=== PATIENT | female | born 1975 | race African-American/Black ===

== ENCOUNTER → 2017-03-02 | Outpatient (CLI) | payer MEDICAID, OTHER ==
--- NOTE | 2017-03-02 20:07 | RADIOLOGY REPORT (SQ) ---
EXAM DESCRIPTION: CT ABD/PELVIS WITH IV ORAL COMPLETED DATE/TIME: 03/02/2017 6:56 pm REASON FOR STUDY: INTRA ABDOMINAL AND PELVIC SWELLING, MASS OR LUMP R19.00 INTRA-ABD AND PELVIC SWE LLING, MASS AND LUMP, UNSP SI D50.9 IRON DEFICIENCY ANEMIA, UNSPECIFIED K59.01 SLOW TRANSIT CONSTIP ATION COMPARISON: April 2016 TECHNIQUE: CT scan of the abdomen and pelvis performed with intravenous and oral contrast using grover lacy scanning technique with dynamic intravenous contrast injection. Images reviewed with lung, soft t issue, and bone windows. Reconstructed coronal and sagittal MPR images reviewed. Delayed images for e valuation of the urinary system also acquired. All images stored on PACS. All CT scanners at this facility use dose modulation, iterative reconstruction, and/or weight based d osing when appropriate to reduce radiation dose to as low as reasonably achievable (ALARA). [facility]: Dose Right [facility]: CareDose [facility]: Dose Right [facility]: Teradose 4D [facility]: [employer] CONTRAST TYPE AND DOSE: contrast/concentration: Isovue 370.00 mg/ml; Total Contrast Delivered: 69.0 ml; Total Saline Delivered: 50.0 ml RENAL FUNCTION: Creatinine 0.3 RADIATION DOSE: Up-to-date CT equipment and radiation dose reduction techniques were employed. CTDIv ol: 6.4 - 8.7 mGy. DLP: 784 mGy-cm. . LIMITATIONS: None. FINDINGS: LOWER CHEST: No significant findings. No nodules or infiltrates. LIVER: Normal size. No masses. No dilated ducts. SPLEEN: Normal size. No focal lesions. PANCREAS: No masses. No significant calcifications. No adjacent inflammation or peripancreatic fluid collections. Pancreatic duct not dilated. GALLBLADDER: No identified stones by CT criteria. No inflammatory changes to suggest cholecystitis. ADRENAL GLANDS: No significant masses or asymmetry. RIGHT KIDNEY AND URETER: No solid masses. No significant calcifications. There is some mild fulln ess of the renal pelvis and ureter presumably related to extrinsic compression of the distal ureter b y the enlarged uterus. LEFT KIDNEY AND URETER: No solid masses. No significant calcifications. There is some mild fullne ss of the renal pelvis and ureter presumably related to extrinsic compression of the distal ureter by the enlarged uterus. AORTA AND VESSELS: No aneurysm. No dissection. Renal arteries, SMA, celiac without stenosis. RETROPERITONEUM: No retroperitoneal adenopathy, hemorrhage or masses. BOWEL AND PERITONEAL CAVITY: No obstruction. No visualized masses. No free fluid. No inflammatory ch anges or thickening of bowel wall. APPENDIX: Not identified PELVIS: Again there is diffuse enlargement of the uterus with a lobulated contour and multiple rounde d densities being identified consistent with an enlarged fibroid uterus. There is compression and di splacement of the bladder. ABDOMINAL WALL: No masses. No hernias. BONES: No significant or acute findings. OTHER: No other significant finding. IMPRESSION: The previously described diffuse enlargement of the uterus is again identified consisten t with an enlarged fibroid uterus. There is compression and displacement of the bladder. Other find ings as noted above TECHNICAL DOCUMENTATION: JOB ID: [id number] Quality ID # [id number]: Final reports with documentation of one or more dose reduction techniques (e.g., Au tomated exposure control, adjustment of the mA and/or kV according to patient size, use of iterative reconstruction technique) 2010 [email or web address]- All Rights Reserved
== END ==
LOC: RAD 15:52
PROVIDERS: ATTEND Internal Medicine Gastroenterology
DX: R19.00 Intra-abdominal and pelvic swelling, mass and lump, unspecified site (principal); D50.9 Iron deficiency anemia, unspecified; K59.01 Slow transit constipation
CPT/HCPCS: 74177; 82565

== ENCOUNTER 2017-11-27 13:37 | Emergency (ER) | payer OTHER ==
[2017-11-27] MEDS ORDERED: ONDANSETRON 4 MG TAB.RAPDIS PO ONE (14:15)
[2017-11-27] MEDS ORDERED: FENTANYL CITRATE INJ/PF 100 MCG/2 ML AMPUL IV ONE (14:16)
[2017-11-27] MEDS ORDERED: NORMAL SALINE 1000 ML 1,000 ML IV ONE (14:17)
--- NOTE | 2017-11-27 14:17 | ER Document Report ---
ED Medical Screen (RME) - General Chief Complaint: Abdominal Pain Stated Complaint: ABDOMINAL PAIN Time Seen by Provider: 11/27/17 14:12 Notes: RAPID MEDICAL EVALUATION DISCLOSURE I have seen this patient as part of a Rapid Medical Evaluation and, if applicable, placed any initially appropriate orders. The patient will be seen and fully evaluated, including a full history and physical exam, by a provider ( in Main ED or Fast Track) when a room becomes available. 42-year-old female here with complaints of left lower quadrant abdominal pain hematuria nausea vomiting ongoing for the past few days. She does not know of anything in particular makes the pain worse. She has tried ibuprofen which has helped some. She denies vaginal bleeding discharge fevers chills. Denies any prior history of kidney stones diverticulitis colitis. EXAM Exquisite tenderness to palpation of left lower greater than upper quadrant No peritoneal signs Tachycardic TRAVEL OUTSIDE OF THE [place] IN LAST 30 DAYS: No - Related Data Allergies/Adverse Reactions: acetaminophen [From Percocet] Allergy (Verified 11/27/17 13:49) oxycodone [From OxyContin] Allergy (Verified 11/27/17 13:49) Past Medical History - Social History Family history: Reviewed & Not Pertinent Endocrine Medical History: Reports: Hx Diabetes Mellitus Type 1, Hx Diabetes Mellitus Type 2 - DX [place] 2003 Psychiatric Medical History: Reports: Hx Anxiety Past Surgical History: Reports: Hx Abdominal Surgery - , Hx Section. Denies: Hx Adenoidectomy - Immunizations Hx Diphtheria, Pertussis, Tetanus Vaccination: Yes Physical Exam - Vital signs Vitals: Temp Pulse Resp BP Pulse Ox 98.7 F 124 H 20 130/83 H 97 11/27/17 13:54 11/27/17 13:54 11/27/17 13:54 11/27/17 13:54 11/27/17 13:54 Course - Vital Signs Vital signs: Temp Pulse Resp BP Pulse Ox 98.7 F 124 H 20 130/83 H 97 11/27/17 13:54 11/27/17 13:54 11/27/17 13:54 11/27/17 13:54 11/27/17 13:54 Doctor's Discharge - Discharge Referrals: ROSEMARIE DOUGLAS MD [Primary Care Provider] - Follow up as needed
[2017-11-27 15:51] LABS: ABSOLUTE BASOPHILS # (AUTO) 0.1 10^3/uL (0.0-0.2); ABSOLUTE EOSINOPHILS # (AUTO) 0.1 10^3/uL (0.0-0.6); ABSOLUTE LYMPHOCYTES (AUTO) 2.7 10^3/uL (0.5-4.7); ABSOLUTE MONOCYTES (AUTO) 0.6 10^3/uL (0.1-1.4); BASOPHILS % (AUTO) 0.7 % (0-2); EOSINOPHILS % (AUTO) 0.6 % (0-6); HEMATOCRIT 43.2 % (36.0-47.0); HEMOGLOBIN 14.3 g/dL (12.0-15.5); LYMPHOCYTES % (AUTO) 17.7 % (13-45); MEAN CORPUSCULAR HEMOGLOBIN 29.6 pg (27.0-33.4); MEAN CORPUSCULAR VOLUME 90 fl (80-97); MONOCYTES % (AUTO) 3.8 % (3-13); PLATELET COUNT 300 10^3/uL (150-450); RED BLOOD COUNT 4.81 10^6/uL (3.72-5.28); RED CELL DISTRIBUTION WIDTH 14.4 % (11.5-14.0); SEGMENTED NEUTROPHILS % (AUTO) 77.2 % (42-78); TOTAL CELLS COUNTED % (AUTO) 100 %; WHITE BLOOD COUNT 15.5 10^3/uL (4.0-10.5)
[2017-11-27 16:14] LABS: ALANINE AMINOTRANSFERASE 13 U/L (9-52); ALBUMIN 4.3 g/dL (3.5-5.0); ALKALINE PHOSPHATASE 83 U/L (38-126); ANION GAP 15 (5-19); ASPARTATE AMINO TRANSFERASE 13 U/L (14-36); BILIRUBIN,DIRECT 0.4 mg/dL (0.0-0.4); BILIRUBIN,TOTAL 0.4 mg/dL (0.2-1.3); BLOOD UREA NITROGEN 14 mg/dL (7-20); CALCIUM 9.9 mg/dL (8.4-10.2); CARBON DIOXIDE 24 mmol/L (22-30); CHLORIDE 99 mmol/L (98-107); GLUCOSE 379 mg/dL (75-110); LIPASE 110.6 U/L (23-300); POTASSIUM 4.5 mmol/L (3.6-5.0); SODIUM 137.7 mmol/L (137-145); TOTAL PROTEIN 7.4 g/dL (6.3-8.2)
[2017-11-27 16:47] LABS: APPEARANCE,URINE SLIGHTLY-CLOUDY; BILIRUBIN,URINE NEGATIVE (NEGATIVE); COLOR,URINE YELLOW; GLUCOSE, URINE >=500 mg/dL (NEGATIVE); KETONES,URINE TRACE mg/dL (NEGATIVE); LEUKOCYTE ESTERASE,URINE NEGATIVE (NEGATIVE); NITRITE,URINE NEGATIVE (NEGATIVE); PROTEIN,URINE 30 mg/dL (NEGATIVE); URINE SPECIFIC GRAVITY 1.033; UROBILINOGEN,URINE NEGATIVE mg/dL (<2.0)
--- NOTE | 2017-11-27 17:20 | ER Document Report ---
ED General - General Chief Complaint: Abdominal Pain Stated Complaint: ABDOMINAL PAIN Time Seen by Provider: 11/27/17 14:12 Mode of Arrival: Ambulatory Information source: Patient Notes: 42-year-old female presents emergency department with complaints of left lower quadrant abdominal pain that has been present for the last few days. She has had associated nausea, vomiting, hematuria. She describes the pain as a dull aching sensation in the left lower quadrant. No radiation of the pain. No exacerbating factors. Pain relieved with ibuprofen. Patient denies vaginal bleeding, vaginal discharge. Patient does have a history of uterine fibroids. Patient is unsure if the pain is a result of the fibroids or something else. TRAVEL OUTSIDE OF THE [place] IN LAST 30 DAYS: No - HPI Onset: Last week Onset/Duration: Gradual Quality of pain: Achy, Fullness Severity: Moderate Associated symptoms: None Exacerbated by: Denies Relieved by: Other - motrin Similar symptoms previously: Yes Recently seen / treated by doctor: No - Related Data Allergies/Adverse Reactions: acetaminophen [From Percocet] Allergy (Verified 11/27/17 13:49) oxycodone [From OxyContin] Allergy (Verified 11/27/17 13:49) Past Medical History - Social History Smoking Status: Former Smoker Frequency of alcohol use: None Drug Abuse: None Family History: DM, Malignancy Patient has suicidal ideation: No Patient has homicidal ideation: No Endocrine Medical History: Reports: Hx Diabetes Mellitus Type 1, Hx Diabetes Mellitus Type 2 - DX [place] 2003 Renal/ Medical History: Denies: Hx Peritoneal Dialysis Psychiatric Medical History: Reports: Hx Anxiety Past Surgical History: Reports: Hx Abdominal Surgery - , Hx Section. Denies: Hx Adenoidectomy - Immunizations Hx Diphtheria, Pertussis, Tetanus Vaccination: Yes Review of Systems - Review of Systems Constitutional: No symptoms reported EENT: No symptoms reported Cardiovascular: No symptoms reported Respiratory: No symptoms reported Gastrointestinal: Nausea, Vomiting Genitourinary: Hematuria Female Genitourinary: No symptoms reported Musculoskeletal: No symptoms reported Skin: No symptoms reported Neurological/Psychological: No symptoms reported -: Yes All other systems reviewed and negative Physical Exam - Vital signs Vitals: Temp Pulse Resp BP Pulse Ox 98.7 F 124 H 20 130/83 H 97 11/27/17 13:54 11/27/17 13:54 11/27/17 13:54 11/27/17 13:54 11/27/17 13:54 Interpretation: Normal, Tachycardic - Notes Notes: PHYSICAL EXAMINATION: GENERAL: Well-appearing, well-nourished and in no acute distress. HEAD: Atraumatic, normocephalic. EYES: Pupils equal round and reactive to light, extraocular movements intact, conjunctiva are normal. ENT: Nares patent, oropharynx clear without exudates. Moist mucous membranes. NECK: Normal range of motion, supple without lymphadenopathy LUNGS: Breath sounds clear to auscultation bilaterally and equal. No wheezes rales or rhonchi. HEART: Regular rate and rhythm without murmurs ABDOMEN: Soft, tenderness to palpation in the LLQ, nondistended abdomen. No guarding, no rebound. No masses appreciated. Female : deferred Musculoskeletal: Normal range of motion, no pitting or edema. No cyanosis. NEUROLOGICAL: Cranial nerves grossly intact. Normal speech, normal gait. Normal sensory, motor exams PSYCH: Normal mood, normal affect. SKIN: Warm, Dry, normal turgor, no rashes or lesions noted. Course - Re-evaluation Re-evalutation: 11/27/17 18:51 Labs and imaging obtained. Patient has an elevated white blood cell count of 15.5. Patient CT of the abdomen and pelvis was done and shows uterine fibroids with a mild hydroureter. Patient's creatinine is normal. I discussed the results with the patient. Patient does have an DISABILITY INSURANCE HEARING OFFICER that she follows up with. I instructed the patient that she will need to follow-up with her DISABILITY INSURANCE HEARING OFFICER for further management. Patient instructed to continue taking her medications as directed and to return to the emergency department for any worsening symptoms. Patient is agreeable with the plan of care. - Vital Signs Vital signs: Temp Pulse Resp BP Pulse Ox 98.7 F 124 H 20 130/83 H 97 11/27/17 13:54 11/27/17 13:54 11/27/17 13:54 11/27/17 13:54 11/27/17 13:54 - Laboratory Result Diagrams: 11/27/17 15:36 11/27/17 15:36 Laboratory results interpreted by me: 11/27/17 11/27/17 11/27/17 15:36 15:36 16:13 WBC 15.5 H RDW 14.4 H Absolute Neutrophils 12.0 H Glucose 379 H AST 13 L Urine Protein 30 H Urine Glucose (UA) >=500 H Urine Ketones TRACE H Urine Blood SMALL H Urine Ascorbic Acid 40 H Discharge - Discharge Clinical Impression: Fibroid Qualifiers: Uterine leiomyoma location: unspecified location Qualified Code(s): D25.9 - Leiomyoma of uterus, unspecified Condition: Good Disposition: HOME, SELF-CARE Instructions: Abdominal Pain ([facility]) Referrals: ROSEMARIE DOUGLAS MD [EMERITUS] - Follow up as needed
--- NOTE | 2017-11-27 17:27 | RADIOLOGY REPORT (SQ) ---
EXAM DESCRIPTION: CT ABD/PELVIS WITH IV ONLY COMPLETED DATE/TIME: 11/27/2017 5:12 pm REASON FOR STUDY: LLQ>LUQ TTP, hematuria; eval stone vs diverticulitis COMPARISON: None. TECHNIQUE: CT scan of the abdomen and pelvis performed using helical scanning technique with dynamic intravenous contrast injection. No oral contrast. Images reviewed with lung, soft tissue, and bone windows. Reconstructed coronal and sagittal MPR images reviewed. Delayed images for evaluation of the urinary system also acquired. All images stored on PACS. All CT scanners at this facility use dose modulation, iterative reconstruction, and/or weight based d osing when appropriate to reduce radiation dose to as low as reasonably achievable (ALARA). [facility]: Dose Right [facility]: CareDose [facility]: Dose Right [facility]: Teradose 4D [facility]: [employer] CONTRAST TYPE AND DOSE: contrast/concentration: Isovue 370.00 mg/ml; Total Contrast Delivered: 72.0 ml; Total Saline Delivered: 39.0 ml RENAL FUNCTION: BUN 14 creatinine 0.61 RADIATION DOSE: CT Rad equipment meets quality standard of care and radiation dose reduction techniq ues were employed. CTDIvol: NaN - NaN mGy. DLP: 0 mGy-cm.. LIMITATIONS: None. FINDINGS: LOWER CHEST: No significant findings. No nodules or infiltrates. LIVER: Normal size. No masses. No dilated ducts. SPLEEN: Normal size. No focal lesions. PANCREAS: No masses. No significant calcifications. No adjacent inflammation or peripancreatic fluid collections. Pancreatic duct not dilated. GALLBLADDER: No identified stones by CT criteria. No inflammatory changes to suggest cholecystitis. ADRENAL GLANDS: No significant masses or asymmetry. RIGHT KIDNEY AND URETER: No solid masses. No significant calcifications. Minimal hydronephrosis/h ydroureter. LEFT KIDNEY AND URETER: No solid masses. No significant calcifications. Minimal hydronephrosis/hy droureter. AORTA AND VESSELS: No aneurysm. No dissection. Renal arteries, SMA, celiac without stenosis. RETROPERITONEUM: No retroperitoneal adenopathy, hemorrhage or masses. BOWEL AND PERITONEAL CAVITY: No masses or inflammatory changes. No free fluid or peritoneal masses. APPENDIX: Not identified. PELVIS: Markedly enlarged uterus with multiple large heterogeneous masses. The uterus measures 16.7 by 11.8 by 15 cm. ABDOMINAL WALL: No masses. No hernias. BONES: No significant or acute findings. OTHER: No other significant finding. IMPRESSION: Markedly enlarged uterus with multiple large fibroids. This results in mild bilateral h ydronephrosis/hydroureter TECHNICAL DOCUMENTATION: JOB ID: [id number] Quality ID # [id number]: Final reports with documentation of one or more dose reduction techniques (e.g., Au tomated exposure control, adjustment of the mA and/or kV according to patient size, use of iterative reconstruction technique) 2010 [employer]- All Rights Reserved Reading location - IP/workstation name: [email or web address]
[2017-11-27 19:15] VITALS: BP 121/78
== END 2017-11-27 19:10 | disposition home or self-care (01) ==
LOC: ER 13:37
DX: D25.9 Leiomyoma of uterus, unspecified (principal); R10.32 Left lower quadrant pain; R11.2 Nausea with vomiting, unspecified; R31.9 Hematuria, unspecified; E11.9 Type 2 diabetes mellitus without complications; Z88.6 Allergy status to analgesic agent; Z87.891 Personal history of nicotine dependence
CPT/HCPCS: 99284; 96360; 36415; 83690; 85025; 81025; 80053; 81001; 74177; S0119; J7030

== ENCOUNTER 2018-04-09 12:12 | Day surgery (SDC) | payer OTHER ==
--- NOTE | 2018-04-07 11:10 | RADIOLOGY REPORT (SQ) ---
EXAM DESCRIPTION: CHEST PA/LATERAL COMPLETED DATE/TIME: 04/07/2018 10:54 am REASON FOR STUDY: PRE-OP COMPARISON: 04/18/2013 EXAM PARAMETERS: NUMBER OF VIEWS: two views TECHNIQUE: Digital Frontal and Lateral radiographic views of the chest acquired. RADIATION DOSE: NA LIMITATIONS: none FINDINGS: LUNGS AND PLEURA: No opacities, masses or pneumothorax. No pleural effusion. MEDIASTINUM AND HILAR STRUCTURES: No masses or contour abnormalities. HEART AND VASCULAR STRUCTURES: Heart normal size. No evidence for failure. BONES: No acute findings. HARDWARE: None in the chest. OTHER: No other significant finding. IMPRESSION: NO SIGNIFICANT RADIOGRAPHIC FINDING IN THE CHEST. TECHNICAL DOCUMENTATION: JOB ID: [id number] [employer]- All Rights Reserved Reading location - IP/workstation name: [email or web address]
[2018-04-07 11:19] LABS: HEMOGLOBIN 10.5 g/dL (12.0-15.5); MEAN CORPUSCULAR HEMOGLOBIN 26.6 pg (27.0-33.4); MEAN CORPUSCULAR HGB CONC 32.7 g/dL (32.0-36.0); MEAN CORPUSCULAR VOLUME 81 fl (80-97); PLATELET COUNT 372 10^3/uL (150-450); RED BLOOD COUNT 3.94 10^6/uL (3.72-5.28); RED CELL DISTRIBUTION WIDTH 17.3 % (11.5-14.0); WHITE BLOOD COUNT 12.7 10^3/uL (4.0-10.5)
[2018-04-07 11:44] LABS: ANION GAP 13 (5-19); BLOOD UREA NITROGEN 8 mg/dL (7-20); CARBON DIOXIDE 24 mmol/L (22-30); CHLORIDE 100 mmol/L (98-107); GLUCOSE 391 mg/dL (75-110); SODIUM 137.2 mmol/L (137-145)
[2018-04-07 11:46] LABS: POTASSIUM 4.4 mmol/L (3.6-5.0)
[~2018-04-09 12:12] MED LIST: ACETAMINOPHEN 1,000 MG/100 ML RTUPB IV ONE; CEFAZOLIN 2 GM/D5W RTU 2 GM/50 ML RTUPB IV PRN; DEXAMETHASONE SOD PHOSPHATE INJ 4 MG/1 ML VIAL ONE; LIDOCAINE 2% INJ-PF (20 MG/ML) 10 ML AMPUL ONE; MIDAZOLAM 2 MG/2 ML INJ ONE; ONDANSETRON HCL INJ/PF 4 MG/2 ML SDV ONE; PROPOFOL INJ 200 MG/20 ML VIAL IV ONE
[2018-04-09] MEDS ORDERED: CEFAZOLIN 2 GM/D5W RTU 2 GM/50 ML RTUPB IV ONE (12:17)
[2018-04-09] MEDS ORDERED: BUPIVACAINE HCL 0.5 % INJ/PF 30 ML SDV ONE (12:17)
[2018-04-09] MEDS ORDERED: LIDOCAINE 1% INJ-PF (10 MG/ML) 30 ML SDV ONE (12:17)
[2018-04-09] MEDS ORDERED: ALBUTEROL SULFATE 0.083% NEB 2.5 MG/3 ML AMPUL NEB ONE (12:29)
[2018-04-09] MEDS ORDERED: FAMOTIDINE INJ/PF 20 MG/2 ML SDV IV ONE (12:44)
[2018-04-09] MEDS ORDERED: METOCLOPRAMIDE HCL INJ/PF 10 MG/2 ML SDV ONE (12:45)
[2018-04-09] MEDS ORDERED: PROMETHAZINE HCL INJ 25 MG/1 ML VIAL IV PRN ×2 (12:51)
[2018-04-09] MEDS ORDERED: MORPHINE SULFATE 10 MG/ML INJ IV PRN (12:51)
[2018-04-09] MEDS ORDERED: MEPERIDINE HCL/PF INJ 25 MG/1 ML DISP.SYRIN IV PRN (12:51)
[2018-04-09] MEDS ORDERED: FENTANYL CITRATE INJ/PF 100 MCG/2 ML AMPUL IV PRN ×3 (12:51)
[2018-04-09] MEDS ORDERED: DIPHENHYDRAMINE HCL 50 MG/ML VIAL IV PRN (12:51)
[2018-04-09] MEDS ORDERED: ONDANSETRON HCL INJ/PF 4 MG/2 ML SDV IV PRN (12:51)
[2018-04-09] MEDS: FENTANYL CITRATE INJ/PF 100 MCG/2 ML AMPUL ONE ×2 (14:40→14:45)
[2018-04-09] MEDS ORDERED: FENTANYL CITRATE INJ/PF 100 MCG/2 ML AMPUL ONE (14:45)
[2018-04-09] MEDS ORDERED: HYDROCODONE/ACETAMINOPHEN 5-325 MG TABLET ONE (15:15)
[2018-04-09 16:23] VITALS: BP 156/80
--- NOTE | 2018-04-12 09:07 | Discharge Summary ---
Discharge Summary (SDC) - Discharge Final Diagnosis: Scalp cyst Condition: Good Forms: ASU Anesthesia D/C Instruction, Discharge POC-Surgical Service Referrals: SHWETA DAWKINS MD [ACTIVE STAFF] - 04/20/18 9:30 am Respiratory Treatments at Home: Deep Breathing/Coughing, Incentive Spirometer Discharge Activity: Balance Activity w/Rest Home Care Assistance: None Needed Report the Following to Your Physician Immediately: Nausea, Vomiting, Increase in Pain, Fever over 101 Degrees, Unusual Bleeding, Redness, Swelling, Warmth, Drainage-Yellow, Drainage-Foul Smelling
--- NOTE | 2018-04-12 14:51 | Operative Report ---
Nonrecallable Operative Report DATE OF SURGERY: 04/09/18 PREOPERATIVE DIAGNOSIS: Scalp cyst POSTOPERATIVE DIAGNOSIS: Same as above OPERATION: Excision of 4 cm scalp cyst. SURGEON: SHWETA DAWKINS ANESTHESIA: LMAC TISSUE REMOVED OR ALTERED: 4 cm scalp cyst COMPLICATIONS: None apparent ESTIMATED BLOOD LOSS: Minimal PROCEDURE: Drains/implants: None. Procedure in detail: After informed consent was obtained, the patient was brought into the operating room and laid in the left lateral decubitus position. The scalp was prepped and draped in a normal sterile fashion. The 4 cm scalp cyst was easily identified. An elliptical incision was created over the cyst. A large amount of sebaceous material was removed from the cyst. The cyst wall was excised sharply. The cyst extended all the way down to the calvarium. Hemostasis was achieved using Bovie electrocautery and suture ligation. The overlying skin was then closed using 3-0 Prolene suture in vertical mattress fashion. A dressing was fashioned and the procedure was concluded. All sponge, instrument, and needle counts were correct x2. Condition: Stable.
== END 2018-04-09 16:10 | disposition home or self-care (01) ==
LOC: OROUT 12:12
PROVIDERS: ATTEND Surgery
DX: L72.11 Pilar cyst (principal); E11.9 Type 2 diabetes mellitus without complications; D64.9 Anemia, unspecified; F17.210 Nicotine dependence, cigarettes, uncomplicated; Z88.5 Allergy status to narcotic agent; Z87.09 Personal history of other diseases of the respiratory system; Z79.84 Long term (current) use of oral hypoglycemic drugs; Z79.4 Long term (current) use of insulin
CPT/HCPCS: 36415; 82962; 85027; 81025; 80048; 71046; 21014; J2250; J3490 ×3; J1100; J3010; J2765; J2405; J2704; S0028; J0690; J0131; 300

== ENCOUNTER → 2019-01-10 | Outpatient (CLI) | payer BC ==
--- NOTE | 2019-01-10 16:49 | RADIOLOGY REPORT (SQ) ---
EXAM DESCRIPTION: U/S THYROID/SFT TISS HD NECK COMPLETED DATE/TIME: 01/10/2019 4:39 pm REASON FOR STUDY: R59.0 LOCALIZED ENLARGED LYMPH NODES R59.0 LOCALIZED ENLARGED LYMPH NODES COMPARISON: None. TECHNIQUE: Dynamic and static zepeda-scale images acquired of the thyroid gland. Selected additional c olor/power Doppler images recorded. All images stored to PACS. LIMITATIONS: None. FINDINGS: RIGHT LOBE: 2.2 x 5.7 cm. Slightly heterogenous echotexture. No cystic or solid masses. LEFT LOBE: 2.1 x 5.4 cm. Slightly heterogenous echotexture. 5 mm hypoechoic nodule. ISTHMUS: Normal size. Slightly heterogenous echotexture. 7 mm hypoechoic nodule. OTHER: No other significant finding. IMPRESSION: MILD THYROMEGALY WITH SLIGHTLY HETEROGENOUS ECHOTEXTURE. SMALL SUBCENTIMETER NODULES. NO ADENOPATHY VISUALIZED. TECHNICAL DOCUMENTATION: JOB ID: [id number] [employer]- All Rights Reserved Reading location - IP/workstation name: [email or web address]
== END ==
LOC: RAD 15:51
PROVIDERS: ATTEND Internal Medicine Geriatric Medicine
DX: E04.1 Nontoxic single thyroid nodule (principal); R59.0 Localized enlarged lymph nodes
CPT/HCPCS: 76536

== ENCOUNTER → 2019-02-07 | Outpatient (CLI) | payer BC ==
--- NOTE | 2019-02-07 14:28 | RADIOLOGY REPORT (SQ) ---
EXAM DESCRIPTION: NM GASTRIC EMPTYING STUDY COMPLETED DATE/TIME: 02/07/2019 1:51 pm REASON FOR STUDY: GASTROPARESIS (K31.84) K31.84 GASTROPARESIS COMPARISON: None. RADIONUCLIDE AND DOSE: 2 millicuries Tc-99m Sulfur Colloid. A wide variety of solid foods have been used. The route of agent administration: Oral. TECHNIQUE: 1 minute serial static imaging performed at time of meal, 1 hour, 2 hours, 3 hours, and 4 hours as needed. Once stomach reaches 90% emptying, the test is complete. Image intensity values pl otted with respect to time with linear regression algorithm. LIMITATIONS: None. FINDINGS: Patient was observed for 4 hours. Immediate post meal serves as baseline. Gastric emptying at 30 minutes was 47.5%. Gastric emptying at 60 minutes was 54.5% Gastric emptying at 90 minutes was 58.8%. Gastric emptying at 120 minutes was 61.9%. Gastric emptying at 240 minutes was 69.2% IMPRESSION: Delayed gastric emptying TECHNICAL DOCUMENTATION: JOB ID: [id number] [employer]- All Rights Reserved Reading location - IP/workstation name: [email or web address]
== END ==
LOC: RAD 07:35
PROVIDERS: ATTEND Internal Medicine Geriatric Medicine
DX: E11.43 Type 2 diabetes mellitus with diabetic autonomic (poly)neuropathy (principal); K31.84 Gastroparesis
CPT/HCPCS: 78264; A9541

== ENCOUNTER 2019-07-10 02:45 | Emergency (ER) | payer BC ==
[2019-07-10] MEDS ORDERED: METOCLOPRAMIDE HCL INJ/PF 10 MG/2 ML SDV IV ONE (04:06)
--- NOTE | 2019-07-10 04:08 | ER Document Report ---
ED General - General Chief Complaint: Chest Pain Stated Complaint: NAUSEA,VOMITING Time Seen by Provider: 07/10/19 04:00 Primary Care Provider: [facility] [Provider Group] - Follow up in 3-5 days AMANDA FITZGERALD MD [Primary Care Provider] - 07/11/19 TRAVEL OUTSIDE OF THE [place] IN LAST 30 DAYS: No - HPI Notes: Patient is a 44-year-old female with a history of diabetes and gastroparesis who presents complaining of generalized abdominal pain, nausea/vomiting, loose stool over the past week and a half. Patient states that she does feel a burning to her epigastrium/lower chest area. Patient states that she has had a dry cough recently as well. Patient has had decreased p.o. intake. She is otherwise urinating normally. No other concerns or complaints. Surgical history to her abdomen is positive for a . Denies any headache, fever, neck pain, UR I, sore throat, palpitations, syncope, shortness of breath, wheeze, dyspnea, urinary retention, dysuria, hematuria, back pain, or rash. - Related Data Allergies/Adverse Reactions: oxycodone Allergy (Severe, Verified 04/09/18 13:16) Anaphylaxis Past Medical History - Social History Smoking Status: Never Smoker Chew tobacco use (# tins/day): No Frequency of alcohol use: None Drug Abuse: None Family History: DM, Malignancy Patient has suicidal ideation: No Patient has homicidal ideation: No - Past Medical History Cardiac Medical History: Denies: Hx Coronary Artery Disease, Hx Heart Attack, Hx Hypertension Pulmonary Medical History: Denies: Hx Asthma, Hx Bronchitis, Hx COPD, Hx Pneumonia Neurological Medical History: Denies: Hx Cerebrovascular Accident, Hx Seizures Endocrine Medical History: Reports: Hx Diabetes Mellitus Type 1, Hx Diabetes Mellitus Type 2 - DX [place] 2003 Renal/ Medical History: Denies: Hx Peritoneal Dialysis Musculoskeletal Medical History: Denies Hx Arthritis Psychiatric Medical History: Reports: Hx Anxiety Past Surgical History: Reports: Hx Abdominal Surgery - , Hx Section. Denies: Hx Adenoidectomy - Immunizations Hx Diphtheria, Pertussis, Tetanus Vaccination: Yes Review of Systems - Review of Systems -: Yes All other systems reviewed and negative Physical Exam - Vital signs Vitals: Temp Pulse Resp BP Pulse Ox 97.9 F 115 H 24 H 139/78 H 99 07/10/19 03:07 07/10/19 03:07 07/10/19 03:07 07/10/19 03:07 07/10/19 03:07 - Notes Notes: PHYSICAL EXAMINATION: GENERAL: Well-appearing, well-nourished and in no acute distress. HEAD: Atraumatic, normocephalic. EYES: Pupils equal round and reactive to light, extraocular movements intact, sclera anicteric, conjunctiva are normal. ENT: Nares patent and without discharge. oropharynx clear without exudates. No tonsilar hypertrophy or erythema. Moist mucous membranes. NECK: Normal range of motion, supple without lymphadenopathy LUNGS: Breath sounds clear to auscultation bilaterally and equal. No wheezes rales or rhonchi. HEART: Regular rate and rhythm without murmurs, rubs, gallops. ABDOMEN: Soft, nondistended abdomen. No guarding, no rebound. Normal bowel sounds present. No CVA tenderness bilaterally. + generalized tenderness and tenderness to the epigastrum that reproduces her described pains. + palp mass noted lower abd. Musculoskeletal: FROM to passive/active. Strength 5+/5. Extremities: No cyanosis, clubbing, or edema b/l. Peripheral pulses 2+. Capillary refill less than 3 seconds. NEUROLOGICAL: Cranial nerves grossly intact. Normal speech, normal gait. PSYCH: Normal mood, normal affect. SKIN: Warm, Dry, normal turgor, no rashes or lesions noted. Course - Re-evaluation Re-evalutation: 07/10/19 06:38 I did speak with OBGYN, Dr. Carbone, regarding the CT findings. Pt may f/u in their office. Patient is an afebrile, well-hydrated, 44-year-old female who presents to the ED with generalized abd pain and enlarging uterus suggestive of leiomyomas/fibroids--see imaging, and cough which may be viral. Vitals are acceptable without any significant tachycardia, tachypnea, or hypoxia. PE is otherwise unremarkable. Labs otherwise acceptable. Patient is nontoxic-appear ing is tolerating p.o. without any difficulties. CXR unremarkable. No other labs or imaging warranted at this time based on H&P. Pt does not have any SOB or CP. Her pain is epigastric and generalized abd--reproducible. The GI cocktail finished off any remaining upper GI symptoms. Low suspicion/risk for pneumonia, ACS, PE, Pneumothorax, pericarditis, acute appendicitis, bowel obstruction, acute cholecystitis, acute cholangitis, perforated diverticulitis, incarcerated hernia, pancreatitis, perforated ulcer, peritonitis, sepsis, pelvic inflammatory disease, ectopic , tubo-ovarian abscess, ovarian torsion, or other systemic emergent condition at this time. Patient is aware that her condition can change from initial presentation and she needs to monitor symptoms closely and seek medical attention if any acute changes. I will send her home with prescription for reglan. Conservative measures otherwise for symptoms. Recheck with your PCM/OBGYN in 3-5 days. Return to the ED with any worsening/concerning symptoms otherwise as reviewed in discharge. Patient is in agreement. - Vital Signs Vital signs: Temp Pulse Resp BP Pulse Ox 97.9 F 115 H 19 149/115 H 99 07/10/19 03:07 07/10/19 03:07 07/10/19 04:01 07/10/19 04:01 07/10/19 04:05 - Laboratory Result Diagrams: 07/10/19 04:15 07/10/19 04:15 Laboratory results interpreted by me: 07/10/19 07/10/19 07/10/19 03:36 04:15 04:15 WBC 12.6 H Hgb 10.0 L Hct 31.5 L MCV 78 L MCH 24.9 L MCHC 31.9 L RDW 17.9 H Plt Count 620 H Abs Neuts (Manual) 8.9 H Sodium 130.1 L Glucose 264 H POC Glucose 271 H Albumin 3.3 L Urine Protein Urine Glucose (UA) Urine Ketones 07/10/19 06:00 WBC Hgb Hct MCV MCH MCHC RDW Plt Count Abs Neuts (Manual) Sodium Glucose POC Glucose Albumin Urine Protein >=500 H Urine Glucose (UA) >=500 H Urine Ketones 20 H Discharge - Discharge Clinical Impression: Uterine enlargement, Gastroenteritis, Cough Abdominal pain Qualifiers: Abdominal location: generalized Qualified Code(s): R10.84 - Generalized abdominal pain Condition: Stable Disposition: HOME, SELF-CARE Instructions: Abdominal Pain ([facility]) Additional Instructions: Maintain adequate fluid and food intake [place] diet ([employer] Bananas, rice, apples, toast, etc Zofran as needed tylenol if needed Monitor for any worsening symptoms Make sure you are staying hydrated enough to urinate and have normal BM's Recheck with your PCM in 3-5 days Schedule appoint with [facility] to further evaluate your enlarged uterus and leiomyoma/fibroids Consider consult with gastroenterology Return to the ED with any worsening symptoms and/or development of fever, headache, chest pain, palpitations, syncope, shortness of breath, trouble br eathing, abdominal pain, n/v/d, blood in stool/urine, weakness, or other worsening symptoms that are concerning to you. Prescriptions: Omeprazole 20 mg PO DAILY #30 tablet. Metoclopramide HCl [Reglan] 10 mg PO BID PRN #10 tablet PRN Reason: Forms: Elevated Blood Pressure Referrals: AMANDA FITZGERALD MD [Primary Care Provider] - 07/11/19 [facility] [Provider Group] - Follow up in 3-5 days
[2019-07-10] MEDS: NORMAL SALINE 1000 ML 1,000 ML IV PRN ×2 (04:27→05:45)
[2019-07-10 04:43] LABS: HEMATOCRIT 31.5 % (36.0-47.0); MEAN CORPUSCULAR HEMOGLOBIN 24.9 pg (27.0-33.4); MEAN CORPUSCULAR HGB CONC 31.9 g/dL (32.0-36.0); MEAN CORPUSCULAR VOLUME 78 fl (80-97); PLATELET COUNT 620 10^3/uL (150-450); RED BLOOD COUNT 4.04 10^6/uL (3.72-5.28); RED CELL DISTRIBUTION WIDTH 17.9 % (11.5-14.0); WHITE BLOOD COUNT 12.6 10^3/uL (4.0-10.5)
[2019-07-10 04:58] LABS: ALBUMIN 3.3 g/dL (3.5-5.0); ALKALINE PHOSPHATASE 76 U/L (38-126); ANION GAP 6 (5-19); ASPARTATE AMINO TRANSFERASE 19 U/L (14-36); BILIRUBIN,TOTAL 0.4 mg/dL (0.2-1.3); BLOOD UREA NITROGEN 13 mg/dL (7-20); CARBON DIOXIDE 25 mmol/L (22-30); CHLORIDE 99 mmol/L (98-107); GLUCOSE 264 mg/dL (75-110); POTASSIUM 4.4 mmol/L (3.6-5.0); TOTAL PROTEIN 6.3 g/dL (6.3-8.2)
[2019-07-10 05:01] LABS: ABSOLUTE LYMPHOCYTES# (MANUAL) 3.3 10^3/uL (0.5-4.7); ABSOLUTE MONOCYTES # (MANUAL) 0.4 10^3/uL (0.1-1.4); BASOPHILS % (MANUAL) 0 % (0-2); EOSINOPHILS % (MANUAL) 0 % (0-6); LYMPHOCYTES % (MANUAL) 26 % (13-45); MONOCYTES % (MANUAL) 3 % (3-13); SEGMENTED NEUTROPHILS % (MAN) 71 % (42-78); TOTAL CELLS COUNTED 100
[2019-07-10 05:02] LABS: ANISOCYTOSIS 1+; PLATELET COMMENT INCREASED; SCHISTOCYTES SLIGHT
--- NOTE | 2019-07-10 05:58 | RADIOLOGY REPORT (SQ) ---
CT ABDOMEN AND PELVIS WITH INTRAVENOUS CONTRAST: 07/10/2019 4:51 AM [employer] HISTORY: 44-year old with generalized abdominal pain, nausea, vomiting. COMPARISON: Multiple CTs from 04/02/2016 through 01/10/2019 TECHNIQUE: Axial contiguous images were obtained from the lung bases to the proximal femurs with intravenous intravenous contrast administered. Oral contrast was also given to the patient. Sagittal and coronal reconstructions were also obtained and reviewed. This exam was performed according to our departmental dose-optimization program, which includes automated exposure control, adjustment of the mA and/or KV according to the patient's size and/or use of iterative reconstruction technique. FINDINGS: No focal consolidative airspace opacities are seen. No discrete pleural effusion is seen. The visualized hepatic parenchyma is unremarkable. No focal enhancing lesion is seen. The gallbladder demonstrates no evidence of calcified gallstones The spleen, pancreas, and adrenals are normal in size and contour. There is mild bilateral hydronephrosis. Bladder is minimally distended, but grossly appears unremarkable. The uterus is present enlarged. The uterus measures at least 20.4 x 10.5 cm, previously 15.5 x 8.8 cm. There are multiple masses. This could be due to leiomyomas. The uterus has steadily increased in size since original imaging. Gynecologic referral may be warranted to exclude a other etiologies such as a sarcoma. The stomach is not well distended. The small bowel loops appear unremarkable. No pericolonic inflammatory stranding is seen. The appendix appears unremarkable. There is no evidence of pneumoperitoneum or free fluid. The aorta and IVC appear normal in size. No significantly enlarged lymph nodes are seen in the abdomen or pelvis. Review of the bone show no evidence of any suspicious lytic or blastic lesions. IMPRESSION: There is mild bilateral hydronephrosis which may be secondary to the mass effect from the uterus. The uterus is enlarged with multiple masses which may be secondary to uterine leiomyomas. The uterus is subtly increased in size. Gynecologic referral will likely be warranted to exclude an underlying neoplasm such as a sarcoma. MRI imaging could possibly be of benefit
[2019-07-10 06:23] LABS: APPEARANCE,URINE SLIGHTLY-CLOUDY; BILIRUBIN,URINE NEGATIVE (NEGATIVE); COLOR,URINE YELLOW; GLUCOSE, URINE >=500 mg/dL (NEGATIVE); KETONES,URINE 20 mg/dL (NEGATIVE); PROTEIN,URINE >=500 mg/dL (NEGATIVE); UROBILINOGEN,URINE NEGATIVE mg/dL (<2.0)
--- NOTE | 2019-07-10 06:24 | RADIOLOGY REPORT (SQ) ---
EXAM DESCRIPTION: XR CHEST 1 VIEW COMPLETED DATE/TME: 07/10/2019 04:06 CLINICAL HISTORY: 44 years, Female, cough COMPARISON: 04/07/2018 chest NUMBER OF VIEWS: 1 TECHNIQUE: Portable chest LIMITATIONS: None. FINDINGS: The heart size is normal. Lungs are clear. No pneumothorax IMPRESSION: Negative chest copyright 2010 [employer]- All Rights Reserved
[2019-07-10] MEDS ORDERED: LIDOCAINE 2% VISCOUS SOLN 15 ML UDCUP PO ONE (06:38)
[2019-07-10] MEDS ORDERED: MAG HYDROX/AL HYDROX/SIMETH SUSP 30 ML UDCUP PO ONE (06:38)
[2019-07-10 08:01] VITALS: BP 142/80
--- NOTE | 2019-07-10 20:34 | EKG REPORT ---
SEVERITY:- OTHERWISE NORMAL ECG - SINUS TACHYCARDIA : Confirmed by: Maye Tadeo MD 10-Jul-2019 20:33:11
== END 2019-07-10 07:30 | disposition home or self-care (01) ==
LOC: ER 02:45
DX: K52.9 Noninfective gastroenteritis and colitis, unspecified (principal); N85.2 Hypertrophy of uterus; E11.43 Type 2 diabetes mellitus with diabetic autonomic (poly)neuropathy; K31.84 Gastroparesis; R10.84 Generalized abdominal pain; R11.2 Nausea with vomiting, unspecified; R05 Cough; R09.89 Other specified symptoms and signs involving the circulatory and respiratory systems; Z87.892 Personal history of anaphylaxis; Z88.6 Allergy status to analgesic agent; Z88.5 Allergy status to narcotic agent
CPT/HCPCS: 36415; 87040; 82962; 83605; 84703; 85025; 80053; 81001; 71045; 74177; 93005; 93010; J3490; J2765; J7030; 96361; 96374; 99284

== ENCOUNTER → 2019-07-29 | Outpatient (CLI) | payer BC | LOC: RAD 19:06 | PROVIDERS: ATTEND Obstetrics & Gynecology | DX: D25.9 Leiomyoma of uterus, unspecified (principal) | CPT/HCPCS: 82565; 72197; A9576 ==